=== PATIENT | male | born 1930 | race Caucasian/White ===

== ENCOUNTER 2018-02-15 17:54 | Inpatient (IN) | payer MEDICARE ==
[~2018-02-15] VITALS: Ht 188 cm; Wt 79.8 kg
[2018-02-15] MEDS ORDERED: PANT40TA4 PO (18:03)
[2018-02-15] MEDS ORDERED: HYDR-3326 PO (18:03)
[2018-02-15] MEDS ORDERED: CIPR-263 PO (18:03)
[2018-02-15] MEDS ORDERED: MULT1TAB73 PO (18:03)
[2018-02-15] MEDS ORDERED: TAMS0.4C34 PO (18:03)
[2018-02-15] MEDS ORDERED: ASPI81TA31 PO (18:03)
[2018-02-15 18:14] LABS: BASOPHILS % (AUTO) 0.3 % (0.0-2.0); EOSINOPHILS # (AUTO) 0.1 K/uL (0.0-0.7); EOSINOPHILS % (AUTO) 1.4 % (0.0-7.0); HEMATOCRIT 26.9 % (36.7-47.1); HEMOGLOBIN 8.9 g/dL (12.5-16.3); LYMPHOCYTES # (AUTO) 0.6 K/uL (20.0-40.0); LYMPHOCYTES % (AUTO) 9.1 % (20.5-51.5); MEAN CORPUSCULAR HEMOGLOBIN 31.9 uug (23.8-33.4); MEAN CORPUSCULAR HGB CONC 33 g/dL (32.5-36.3); MONOCYTES % (AUTO) 15.7 % (0.0-11.0); NEUTROPHILS # (AUTO) 4.9 K/uL (1.8-8.9); NEUTROPHILS % (AUTO) 73.5 % (38.5-71.5); PLATELET COUNT (AUTO) 240 K/uL (152-348); WHITE BLOOD COUNT (AUTO) 6.6 K/uL (3.6-10.2)
[2018-02-15 18:26] LABS: CARBON DIOXIDE 32 mmol/L (21-32); CHLORIDE 104 mmol/L (98-107); CREATININE 1.1 mg/dL (0.6-1.3); GLUCOSE 123 mg/dL (74-106); POTASSIUM 4.1 mmol/L (3.5-5.1); UREA NITROGEN, BLOOD 23 mg/dL (7-18)
[2018-02-15 18:31] LABS: ALANINE AMINOTRANSFERASE 18 U/L (16-63); ALKALINE PHOSPHATASE 59 U/L (50-136); ASPARTATE AMINOTRANSFERASE 12 U/L (15-37); BILIRUBIN,DIRECT 0.1 mg/dL (0.0-0.2); BILIRUBIN,TOTAL 0.2 mg/dL (0.2-1.0); TOTAL PROTEIN, SERUM 5.8 g/dL (6.4-8.2)
[2018-02-15 18:33] LABS: ACETAMINOPHEN < 2.0 ug/mL (10-30)
[2018-02-15 18:34] LABS: ETHANOL < 3 MG/DL (0-0)
[2018-02-15 18:47] LABS: EOSINOPHILS % (MANUAL) 2 % (0-8); LYMPHOCYTES % (MANUAL) 10 % (20-40); MONOCYTES % (MANUAL) 13 % (2-10); NEUTROPHILS % (MANUAL) 75 % (42-75)
[2018-02-15] MEDS ORDERED: HYDROCODONE/APAP 5-325MG TABLET PO ONE (19:15)
[2018-02-15] MEDS ORDERED: HYDROCODONE/APAP 5-325MG TABLET ONE (19:17)
[2018-02-15] MEDS ORDERED: MAGNESIUM HYDROXIDE 30 ML LIQUID UDC PO PRN (22:15)
[2018-02-15] MEDS ORDERED: MAG HYDROX/AL HYDROX/SIMETH 30 ML LIQUID UDC PO PRN (22:15)
[2018-02-15] MEDS: TEMAZEPAM 7.5 MG CAPSULE PO PRN (23:27)
[2018-02-16] MEDS: HYDROCODONE/APAP 5-325MG TABLET PO PRN (03:11)
[2018-02-16] MEDS: PANTOPRAZOLE SODIUM 40 MG TABLET.DR PO SCH (06:41)
[2018-02-16 07:30] VITALS: BP 125/72
[2018-02-16] MEDS: ASPIRIN 81 MG TAB.CHEW PO SCH (08:32)
[2018-02-16] MEDS ORDERED: MULTIVITAMINS,THERAPEUTIC TABLET PO SCH (09:00)
[2018-02-16] MEDS: CIPROFLOXACIN HCL 250 MG TABLET PO SCH ×2 (12:52→17:16)
[2018-02-16] MEDS: QUETIAPINE FUMARATE 25 MG TABLET PO SCH ×2 (13:03→20:47)
[2018-02-16 16:09] VITALS: BP 109/58
[2018-02-16] MEDS: TAMSULOSIN HCL 0.4 MG CAP.SR.24H PO SCH (20:47)
[2018-02-16 21:46] VITALS: BP 116/63
[2018-02-17] MEDS: HYDROCODONE/APAP 5-325MG TABLET PO PRN (01:33)
[2018-02-17] MEDS: PANTOPRAZOLE SODIUM 40 MG TABLET.DR PO SCH (06:35)
[2018-02-17 08:01] VITALS: BP 114/69
[2018-02-17] MEDS: MULTIVITAMINS,THERAPEUTIC TABLET PO SCH (08:27)
[2018-02-17] MEDS: ASPIRIN 81 MG TAB.CHEW PO SCH (08:27)
[2018-02-17] MEDS: QUETIAPINE FUMARATE 25 MG TABLET PO SCH ×2 (08:28→21:02)
[2018-02-17] MEDS: CIPROFLOXACIN HCL 250 MG TABLET PO SCH ×2 (08:29→16:44)
[2018-02-17 16:19] VITALS: BP 116/60
[2018-02-17 20:08] VITALS: BP 108/62
[2018-02-17] MEDS: TAMSULOSIN HCL 0.4 MG CAP.SR.24H PO SCH (21:02)
[2018-02-17 21:05] VITALS: BP 111/72
[2018-02-18] MEDS: PANTOPRAZOLE SODIUM 40 MG TABLET.DR PO SCH (06:44)
[2018-02-18 07:30] VITALS: BP 119/67
[2018-02-18 07:37] LABS: THYROID STIMULATING HORMONE 2.492 mIU/mL (0.358-3.740)
[2018-02-18] MEDS: CIPROFLOXACIN HCL 250 MG TABLET PO SCH ×2 (09:56→17:34)
[2018-02-18] MEDS: ASPIRIN 81 MG TAB.CHEW PO SCH (09:56)
[2018-02-18] MEDS: QUETIAPINE FUMARATE 25 MG TABLET PO SCH ×2 (09:58→20:33)
[2018-02-18] MEDS: MULTIVITAMINS,THERAPEUTIC TABLET PO SCH (15:07)
[2018-02-18 16:00] VITALS: BP 99/63
[2018-02-18 20:00] VITALS: BP 98/61
[2018-02-18] MEDS: TAMSULOSIN HCL 0.4 MG CAP.SR.24H PO SCH (20:32)
[2018-02-18] MEDS: ACETAMINOPHEN 325 MG TABLET PO PRN (20:33)
[2018-02-18 21:10] VITALS: BP 102/57
[2018-02-18] MEDS: Z GUARD REMEDY PASTE 57 GM TUBE TOP SCH (22:09)
[2018-02-19 00:04] LABS: *AMPHETAMINE, URINE NEGATIVE (NEGATIVE); *BARBITURATE, URINE NEGATIVE (NEGATIVE); *CANNABINOID, URINE NEGATIVE (NEGATIVE); *COCCAINE, URINE NEGATIVE (NEGATIVE); *OPIATE, URINE NEGATIVE (NEGATIVE); *PHENCYCLIDINE SCREEN,URINE NEGATIVE (NEGATIVE)
[2018-02-19 00:12] LABS: *BILIRUBIN,URIN NEGATIVE (NEGATIVE); *BLOOD, URINE Trace-intact (NEGATIVE); *CLARITY,URINE CLEAR (CLEAR); *COLOR,URINE YELLOW (YELLOW); *KETONES,URINE NEGATIVE (NEGATIVE); *PROTEIN,URINE NEGATIVE (NEGATIVE); *UROBILINOGEN,URINE 0.2 E.U./dl (NORMAL); LEUKOCYTE ESTERASE ,URINE 1+ (NEGATIVE); NITRITE, URINE NEGATIVE (NEGATIVE); UGLUCOSE NEGATIVE (NEGATIVE)
[2018-02-19 00:16] LABS: RBC,URINE 0-3 /HPF (0-3)
[2018-02-19 00:17] LABS: BACTERIA,URINE NONE SEEN /HPF (NONE SEEN); SQUAMOUS EPITHELIAL CELL,UR FEW /HPF (NONE SEEN)
[2018-02-19] MEDS: HYDROCODONE/APAP 5-325MG TABLET PO PRN (01:22)
[2018-02-19] MEDS: PANTOPRAZOLE SODIUM 40 MG TABLET.DR PO SCH (06:43)
[2018-02-19 07:30] VITALS: BP 105/53
[2018-02-19 07:31] LABS: BASOPHILS % (AUTO) 0.7 % (0.0-2.0); EOSINOPHILS # (AUTO) 0.1 K/uL (0.0-0.7); EOSINOPHILS % (AUTO) 2.6 % (0.0-7.0); HEMOGLOBIN 8.6 g/dL (12.5-16.3); LYMPHOCYTES # (AUTO) 0.7 K/uL (20.0-40.0); LYMPHOCYTES % (AUTO) 15.8 % (20.5-51.5); MEAN CORPUSCULAR HGB CONC 33 g/dL (32.5-36.3); MONOCYTES # (AUTO) 0.7 K/uL (2.0-10.0); MONOCYTES % (AUTO) 16.1 % (0.0-11.0); NEUTROPHILS % (AUTO) 64.8 % (38.5-71.5); PLATELET COUNT (AUTO) 242 K/uL (152-348); RED BLOOD CELL COUNT(AUTO) 2.77 MIL/uL (4.06-5.63); WHITE BLOOD COUNT (AUTO) 4.6 K/uL (3.6-10.2)
[2018-02-19 07:40] LABS: CARBON DIOXIDE 28 mmol/L (21-32); CHLORIDE 106 mmol/L (98-107); GLUCOSE 104 mg/dL (74-106); PHOSPHOROUS 3.4 mg/dL (2.5-4.9); POTASSIUM 4.4 mmol/L (3.5-5.1); UREA NITROGEN, BLOOD 26 mg/dL (7-18)
[2018-02-19] MEDS: QUETIAPINE FUMARATE 25 MG TABLET PO SCH ×2 (08:48→20:39)
[2018-02-19] MEDS: ASPIRIN 81 MG TAB.CHEW PO SCH (08:48)
[2018-02-19] MEDS: Z GUARD REMEDY PASTE 57 GM TUBE TOP SCH ×2 (08:49→20:40)
[2018-02-19 09:38] LABS: LYMPHOCYTES % (MANUAL) 16 % (20-40)
[2018-02-19 09:39] LABS: EOSINOPHILS % (MANUAL) 3 % (0-8); MONOCYTES % (MANUAL) 15 % (2-10); NEUTROPHILS % (MANUAL) 66 % (42-75)
[2018-02-19] MEDS: MULTIVITAMINS,THERAPEUTIC TABLET PO SCH (11:33)
[2018-02-19] MEDS ORDERED: INFLUENZA VACCINE 2018-2019 0.5 ML DISP.SYRIN IM ONE (14:00)
[2018-02-19] MEDS ORDERED: PNEUMOCOCCAL 23-VAL P-SAC VAC 0.5 ML VIAL IM ONE (14:00)
[2018-02-19 15:14] VITALS: BP 118/67
[2018-02-19] MEDS: ACETAMINOPHEN 325 MG TABLET PO PRN (17:54)
[2018-02-19 19:57] VITALS: BP 108/56
[2018-02-19] MEDS: TAMSULOSIN HCL 0.4 MG CAP.SR.24H PO SCH (20:39)
[2018-02-20] MEDS: TEMAZEPAM 7.5 MG CAPSULE PO PRN (00:16)
[2018-02-20] MEDS: HYDROCODONE/APAP 5-325MG TABLET PO PRN (00:17)
[2018-02-20] MEDS: PANTOPRAZOLE SODIUM 40 MG TABLET.DR PO SCH (06:30)
[2018-02-20 07:30] VITALS: BP 129/61
[2018-02-20] MEDS: QUETIAPINE FUMARATE 25 MG TABLET PO SCH ×2 (08:20→20:25)
[2018-02-20] MEDS: ASPIRIN 81 MG TAB.CHEW PO SCH (08:20)
[2018-02-20] MEDS: Z GUARD REMEDY PASTE 57 GM TUBE TOP SCH ×2 (08:24→20:25)
[2018-02-20] MEDS: MULTIVITAMINS,THERAPEUTIC TABLET PO SCH (11:31)
[2018-02-20 16:00] VITALS: BP 132/60
[2018-02-20 19:47] VITALS: BP 106/59
[2018-02-20] MEDS: TAMSULOSIN HCL 0.4 MG CAP.SR.24H PO SCH (20:24)
[2018-02-21] MEDS: PANTOPRAZOLE SODIUM 40 MG TABLET.DR PO SCH (06:40)
[2018-02-21 07:30] VITALS: BP 109/65
[2018-02-21] MEDS: ASPIRIN 81 MG TAB.CHEW PO SCH (08:34)
[2018-02-21] MEDS: QUETIAPINE FUMARATE 25 MG TABLET PO SCH ×2 (08:35→20:39)
[2018-02-21] MEDS: Z GUARD REMEDY PASTE 57 GM TUBE TOP SCH ×2 (08:39→21:10)
[2018-02-21] MEDS: MULTIVITAMINS,THERAPEUTIC TABLET PO SCH (10:30)
[2018-02-21 16:42] VITALS: BP 108/57
[2018-02-21 20:10] VITALS: BP 108/60
[2018-02-21] MEDS: TAMSULOSIN HCL 0.4 MG CAP.SR.24H PO SCH (20:39)
[2018-02-22] MEDS: PANTOPRAZOLE SODIUM 40 MG TABLET.DR PO SCH (06:33)
[2018-02-22 07:30] VITALS: BP 113/68
[2018-02-22] MEDS: QUETIAPINE FUMARATE 25 MG TABLET PO SCH ×2 (08:16→20:05)
[2018-02-22] MEDS: ASPIRIN 81 MG TAB.CHEW PO SCH (08:17)
[2018-02-22] MEDS: Z GUARD REMEDY PASTE 57 GM TUBE TOP SCH ×2 (08:17→20:06)
[2018-02-22] MEDS: MULTIVITAMINS,THERAPEUTIC TABLET PO SCH (11:33)
[2018-02-22 16:11] VITALS: BP 106/56
[2018-02-22 19:56] VITALS: BP 104/59
[2018-02-22] MEDS: TAMSULOSIN HCL 0.4 MG CAP.SR.24H PO SCH (20:04)
[2018-02-22] MEDS: DONEPEZIL 5 MG TABLET PO SCH (20:05)
[2018-02-23] MEDS: PANTOPRAZOLE SODIUM 40 MG TABLET.DR PO SCH (06:45)
[2018-02-23 07:30] VITALS: BP 97/59
[2018-02-23] MEDS: ASPIRIN 81 MG TAB.CHEW PO SCH (08:10)
[2018-02-23] MEDS: Z GUARD REMEDY PASTE 57 GM TUBE TOP SCH ×2 (08:10→20:27)
[2018-02-23] MEDS: QUETIAPINE FUMARATE 25 MG TABLET PO SCH ×3 (08:10→17:26)
[2018-02-23] MEDS: MULTIVITAMINS,THERAPEUTIC TABLET PO SCH (11:15)
[2018-02-23 16:00] VITALS: BP 90/52
[2018-02-23] MEDS: DONEPEZIL 5 MG TABLET PO SCH (20:25)
[2018-02-23] MEDS: TAMSULOSIN HCL 0.4 MG CAP.SR.24H PO SCH (20:25)
[2018-02-23 20:31] VITALS: BP 100/61
[2018-02-24] MEDS: PANTOPRAZOLE SODIUM 40 MG TABLET.DR PO SCH (06:42)
[2018-02-24 07:30] VITALS: BP 120/66
[2018-02-24] MEDS: ASPIRIN 81 MG TAB.CHEW PO SCH (08:31)
[2018-02-24] MEDS: QUETIAPINE FUMARATE 25 MG TABLET PO SCH ×3 (08:31→17:37)
[2018-02-24] MEDS: Z GUARD REMEDY PASTE 57 GM TUBE TOP SCH ×2 (08:32→20:34)
[2018-02-24] MEDS: MULTIVITAMINS,THERAPEUTIC TABLET PO SCH (11:38)
[2018-02-24] MEDS: CLONAZEPAM 0.5 MG TABLET PO PRN (12:45)
[2018-02-24 14:45] VITALS: BP 98/56
[2018-02-24 16:00] VITALS: BP 99/56
[2018-02-24 20:29] VITALS: BP 118/60
[2018-02-24] MEDS: TAMSULOSIN HCL 0.4 MG CAP.SR.24H PO SCH (20:34)
[2018-02-24] MEDS: DONEPEZIL 5 MG TABLET PO SCH (20:34)
[2018-02-25 07:30] VITALS: BP 107/59
[2018-02-25] MEDS: ASPIRIN 81 MG TAB.CHEW PO SCH (08:36)
[2018-02-25] MEDS: MULTIVITAMINS,THERAPEUTIC TABLET PO SCH (08:36)
[2018-02-25] MEDS: PANTOPRAZOLE SODIUM 40 MG TABLET.DR PO SCH (08:36)
[2018-02-25] MEDS: QUETIAPINE FUMARATE 25 MG TABLET PO SCH ×3 (08:36→16:32)
[2018-02-25] MEDS: Z GUARD REMEDY PASTE 57 GM TUBE TOP SCH ×2 (08:37→21:09)
[2018-02-25 16:16] VITALS: BP 96/56
[2018-02-25 20:17] VITALS: BP 114/60
[2018-02-25] MEDS: TAMSULOSIN HCL 0.4 MG CAP.SR.24H PO SCH (21:08)
[2018-02-25] MEDS: DONEPEZIL 5 MG TABLET PO SCH (21:08)
[2018-02-26] MEDS: PANTOPRAZOLE SODIUM 40 MG TABLET.DR PO SCH (06:35)
[2018-02-26 07:30] VITALS: BP 102/61
[2018-02-26] MEDS: QUETIAPINE FUMARATE 25 MG TABLET PO SCH ×3 (08:36→17:28)
[2018-02-26] MEDS: ASPIRIN 81 MG TAB.CHEW PO SCH (08:36)
[2018-02-26] MEDS: Z GUARD REMEDY PASTE 57 GM TUBE TOP SCH ×2 (08:36→20:07)
[2018-02-26] MEDS: MULTIVITAMINS,THERAPEUTIC TABLET PO SCH (08:36)
[2018-02-26 16:00] VITALS: BP 94/50
[2018-02-26 20:00] VITALS: BP 108/60
[2018-02-26] MEDS: TAMSULOSIN HCL 0.4 MG CAP.SR.24H PO SCH (20:06)
[2018-02-26] MEDS: DONEPEZIL 5 MG TABLET PO SCH (20:06)
[2018-02-27] MEDS: PANTOPRAZOLE SODIUM 40 MG TABLET.DR PO SCH (06:32)
[2018-02-27 07:30] VITALS: BP 98/53
[2018-02-27 07:40] LABS: BASOPHILS % (AUTO) 0.3 % (0.0-2.0); EOSINOPHILS # (AUTO) 0.1 K/uL (0.0-0.7); HEMATOCRIT 30.1 % (36.7-47.1); HEMOGLOBIN 10.1 g/dL (12.5-16.3); LYMPHOCYTES # (AUTO) 0.8 K/uL (20.0-40.0); LYMPHOCYTES % (AUTO) 11.6 % (20.5-51.5); MEAN CORPUSCULAR HEMOGLOBIN 31.3 uug (23.8-33.4); MEAN CORPUSCULAR HGB CONC 34 g/dL (32.5-36.3); MEAN CORPUSCULAR VOLUME 93.2 fL (73.0-96.2); MONOCYTES # (AUTO) 0.9 K/uL (2.0-10.0); MONOCYTES % (AUTO) 12.5 % (0.0-11.0); NEUTROPHILS # (AUTO) 5.3 K/uL (1.8-8.9); NEUTROPHILS % (AUTO) 73.6 % (38.5-71.5); RED BLOOD CELL COUNT(AUTO) 3.23 MIL/uL (4.06-5.63)
[2018-02-27 07:58] LABS: PLATELET COUNT (AUTO) 314 K/uL (152-348); WHITE BLOOD COUNT (AUTO) 7.1 K/uL (3.6-10.2)
[2018-02-27 08:03] LABS: CARBON DIOXIDE 26 mmol/L (21-32); CHLORIDE 108 mmol/L (98-107); CREATININE 1.1 mg/dL (0.6-1.3); GLUCOSE 106 mg/dL (74-106); MAGNESIUM 1.9 mg/dL (1.8-2.4); PHOSPHOROUS 2.8 mg/dL (2.5-4.9); POTASSIUM 4.2 mmol/L (3.5-5.1); UREA NITROGEN, BLOOD 35 mg/dL (7-18)
[2018-02-27] MEDS: QUETIAPINE FUMARATE 25 MG TABLET PO SCH ×3 (08:22→16:38)
[2018-02-27] MEDS: ASPIRIN 81 MG TAB.CHEW PO SCH (08:22)
[2018-02-27] MEDS: MULTIVITAMINS,THERAPEUTIC TABLET PO SCH (08:22)
[2018-02-27] MEDS: Z GUARD REMEDY PASTE 57 GM TUBE TOP SCH ×2 (08:22→20:25)
[2018-02-27 09:34] LABS: *BILIRUBIN,URIN NEGATIVE (NEGATIVE); *BLOOD, URINE 1+ (NEGATIVE); *CLARITY,URINE CLOUDY (CLEAR); *COLOR,URINE YELLOW (YELLOW); *KETONES,URINE NEGATIVE (NEGATIVE); *PROTEIN,URINE 1+ (NEGATIVE); *UROBILINOGEN,URINE 0.2 E.U./dl (NORMAL); LEUKOCYTE ESTERASE ,URINE 2+ (NEGATIVE); NITRITE, URINE POSITIVE (NEGATIVE); UGLUCOSE NEGATIVE (NEGATIVE)
[2018-02-27 09:54] LABS: BACTERIA,URINE MANY /HPF (NONE SEEN); SQUAMOUS EPITHELIAL CELL,UR FEW /HPF (NONE SEEN); WBC,URINE TNTC /HPF (0-3)
[2018-02-27 15:13] VITALS: BP 95/62
[2018-02-27] MEDS: TAMSULOSIN HCL 0.4 MG CAP.SR.24H PO SCH (20:25)
[2018-02-27] MEDS: DONEPEZIL 5 MG TABLET PO SCH (20:25)
[2018-02-27] MEDS: SULFAMETH/TRIMETH 800/160 MG TABLET PO SCH (20:25)
[2018-02-27 20:48] VITALS: BP 114/76
[2018-02-28] MEDS: TEMAZEPAM 7.5 MG CAPSULE PO PRN (00:10)
[2018-02-28] MEDS: CLONAZEPAM 0.5 MG TABLET PO PRN (01:35)
[2018-02-28] MEDS: PANTOPRAZOLE SODIUM 40 MG TABLET.DR PO SCH (06:34)
[2018-02-28 07:30] VITALS: BP 100/53
[2018-02-28] MEDS: ASPIRIN 81 MG TAB.CHEW PO SCH (08:25)
[2018-02-28] MEDS: QUETIAPINE FUMARATE 25 MG TABLET PO SCH ×2 (08:25→12:12)
[2018-02-28] MEDS: SULFAMETH/TRIMETH 800/160 MG TABLET PO SCH (08:25)
[2018-02-28] MEDS: MULTIVITAMINS,THERAPEUTIC TABLET PO SCH (08:25)
[2018-02-28] MEDS: Z GUARD REMEDY PASTE 57 GM TUBE TOP SCH (08:25)
== END 2018-02-28 12:45 | DRG 885 ==
LOC: ER 17:54 → GPS 20:53
PROVIDERS: ADMIT Psychiatry & Neurology Psychiatry; ATTEND Hospitalist
DX: F29 Unspecified psychosis not due to a substance or known physiological condition (principal); N18.9 Chronic kidney disease, unspecified; N39.0 Urinary tract infection, site not specified; J98.11 Atelectasis; J90 Pleural effusion, not elsewhere classified; Z88.0 Allergy status to penicillin; I48.2 Chronic atrial fibrillation; Z79.82 Long term (current) use of aspirin; Z59.0 Homelessness; F43.10 Post-traumatic stress disorder, unspecified; N40.0 Benign prostatic hyperplasia without lower urinary tract symptoms; R46.0 Very low level of personal hygiene; R93.5 Abnormal findings on diagnostic imaging of other abdominal regions, including retroperitoneum; Z87.891 Personal history of nicotine dependence; F03.90 Unspecified dementia, unspecified severity, without behavioral disturbance, psychotic disturbance, mood disturbance, and anxiety; G89.18 Other acute postprocedural pain; D64.9 Anemia, unspecified; Z91.81 History of falling
CPT/HCPCS: 36415; 70450; 71045; 72170; 76856; 80307; 83735; 83921; 84100; 84443; 85025; 87077; 87086; 90686; 90732; 93005; 97116; 97530; A4663; G0480; G0480-TC

== ENCOUNTER 2018-06-29 12:33 | Inpatient (IN) | payer MEDICARE ==
[~2018-06-29] VITALS: Ht 182.9 cm; Wt 76.7 kg
[~2018-06-29 12:33] MED LIST: ASPI81TA31 PO; CIPR-263 PO; HYDR-3326 PO; MULT1TAB73 PO; PANT40TA4 PO; TAMS0.4C34 PO
[2018-06-29 13:01] LABS: BASOPHILS % (AUTO) 0.5 % (0.0-2.0); EOSINOPHILS # (AUTO) 0.1 K/uL (0.0-0.7); EOSINOPHILS % (AUTO) 1.2 % (0.0-7.0); HEMATOCRIT 34.2 % (36.7-47.1); HEMOGLOBIN 11.1 g/dL (12.5-16.3); LYMPHOCYTES # (AUTO) 0.7 K/uL (20.0-40.0); MEAN CORPUSCULAR HEMOGLOBIN 27.5 uug (23.8-33.4); MEAN CORPUSCULAR HGB CONC 33 g/dL (32.5-36.3); MEAN CORPUSCULAR VOLUME 84.7 fL (73.0-96.2); MONOCYTES % (AUTO) 15.2 % (0.0-11.0); NEUTROPHILS # (AUTO) 4.8 K/uL (1.8-8.9); NEUTROPHILS % (AUTO) 72.1 % (38.5-71.5); PLATELET COUNT (AUTO) 237 K/uL (152-348); RED BLOOD CELL COUNT(AUTO) 4.04 MIL/uL (4.06-5.63); WHITE BLOOD COUNT (AUTO) 6.7 K/uL (3.6-10.2)
[2018-06-29 13:10] LABS: CARBON DIOXIDE 23 mmol/L (21-32); CHLORIDE 105 mmol/L (98-107); CREATININE 1.1 mg/dL (0.6-1.3); GLUCOSE 116 mg/dL (74-106); UREA NITROGEN, BLOOD 38 mg/dL (7-18)
[2018-06-29 13:18] LABS: ETHANOL < 3 MG/DL (0-0)
[2018-06-29] MEDS ORDERED: QUET50TA PO (13:20)
[2018-06-29] MEDS ORDERED: TAMS-3 PO (13:20)
[2018-06-29] MEDS ORDERED: ACET-2154 PO (13:20)
[2018-06-29] MEDS ORDERED: MAGN400O6 PO (13:20)
[2018-06-29] MEDS ORDERED: DONE5TAB7 PO (13:20)
[2018-06-29] MEDS ORDERED: NA P133E RC (13:20)
[2018-06-29] MEDS ORDERED: ASPI-605 PO (13:20)
[2018-06-29] MEDS ORDERED: PANT40TA2 PO (13:20)
[2018-06-29] MEDS ORDERED: BISA10SU61 RC (13:20)
[2018-06-29] MEDS ORDERED: MULT1TAB73 PO (13:20)
[2018-06-29 13:22] LABS: EOSINOPHILS % (MANUAL) 1 % (0-8); LYMPHOCYTES % (MANUAL) 11 % (20-40); MONOCYTES % (MANUAL) 15 % (2-10)
[2018-06-29 13:23] LABS: NEUTROPHILS % (MANUAL) 73 % (42-75); THYROID STIMULATING HORMONE 4.036 mIU/mL (0.358-3.740)
[2018-06-29 13:25] LABS: ACETAMINOPHEN < 2.0 ug/mL (10-30); ALANINE AMINOTRANSFERASE 20 U/L (16-63); ALKALINE PHOSPHATASE 86 U/L (50-136); ASPARTATE AMINOTRANSFERASE 12 U/L (15-37); BILIRUBIN,DIRECT 0.2 mg/dL (0.0-0.2); BILIRUBIN,TOTAL 0.2 mg/dL (0.2-1.0); TOTAL PROTEIN, SERUM 6.9 g/dL (6.4-8.2)
--- NOTE | 2018-06-29 13:35 | NUR ---
Patient is eating lunch tray with good appetite. Patient is medically cleared by Dr Diego.
--- NOTE | 2018-06-29 14:46 | NUR ---
Patient ambulated to bathroom with 1 person assist. "I usually use a walker." per patient's verbalization.
--- NOTE | 2018-06-29 14:55 | NUR ---
Willian Loaiza is at bedside evaluating the patient@this time.
[2018-06-29 15:05] LABS: *BILIRUBIN,URIN NEGATIVE (NEGATIVE); *BLOOD, URINE 2+ (NEGATIVE); *CLARITY,URINE CLOUDY (CLEAR); *COLOR,URINE YELLOW (YELLOW); *KETONES,URINE NEGATIVE (NEGATIVE); *UROBILINOGEN,URINE 0.2 E.U./dl (NORMAL); LEUKOCYTE ESTERASE ,URINE 1+ (NEGATIVE); NITRITE, URINE NEGATIVE (NEGATIVE); PH,URINE 6.5 (5.0-8.0); UGLUCOSE NEGATIVE (NEGATIVE)
[2018-06-29 15:09] LABS: *AMPHETAMINE, URINE NEGATIVE (NEGATIVE); *BARBITURATE, URINE NEGATIVE (NEGATIVE); *CANNABINOID, URINE NEGATIVE (NEGATIVE); *COCCAINE, URINE NEGATIVE (NEGATIVE); *OPIATE, URINE NEGATIVE (NEGATIVE); *PHENCYCLIDINE SCREEN,URINE NEGATIVE (NEGATIVE)
[2018-06-29 15:17] LABS: BACTERIA,URINE MANY /HPF (NONE SEEN); SQUAMOUS EPITHELIAL CELL,UR MODERATE /HPF (NONE SEEN); WBC,URINE 80-100 /HPF (0-3)
[2018-06-29 16:00] VITALS: BP 107/61
[2018-06-29] MEDS ORDERED: ZOLPIDEM 5 MG TABLET PO PRN (16:30)
[2018-06-29] MEDS ORDERED: MAG HYDROX/AL HYDROX/SIMETH 30 ML LIQUID UDC PO PRN (16:30)
[2018-06-29] MEDS ORDERED: MAGNESIUM HYDROXIDE 30 ML LIQUID UDC PO PRN ×2 (16:30→17:15)
[2018-06-29] MEDS ORDERED: FLEET ENEMA 133 ML BOTTLE RC PRN (17:15)
[2018-06-29] MEDS ORDERED: ACETAMINOPHEN 325 MG TABLET PO PRN (17:15)
[2018-06-29] MEDS ORDERED: BISACODYL 10 MG SUPP.RECT RC PRN (17:15)
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
[2018-06-29 20:07] VITALS: BP 113/56
[2018-06-29] MEDS: TAMSULOSIN HCL 0.4 MG CAP.SR.24H PO SCH (20:12)
--- NOTE | 2018-06-29 21:22 | NUR ---
Received pt in the dining room and watching tv. 1:1 sitter present at pt's side. No acute distress noted. No c/o pain or discomfort. Denies S/I, hallucination, delusion. Meds given as ordered. Pt appears pleasant and cooperative with care. Pt is now back to bed. Sitter at bedside for safety. Safety measures maintained. Will continue to monitor. Addendum: 06/29/18 at 2125 by Clotilde Aleman RN WRONG PATIENT. PLEASE DISREGARD.
--- NOTE | 2018-06-29 21:27 | NUR ---
Received pt sleeping comfortably in bed. Aroused to stimuli. AAO x2. No acute distress noted. No c/o pain or discomfort. Denies S/I, hallucination, delusion. Med given as ordered. Pt was given snack as per pt's request. Safety measures maintained. Will continue to monitor.
[2018-06-30] MEDS: PANTOPRAZOLE SODIUM 40 MG TABLET.DR PO SCH (06:10)
[2018-06-30 07:30] VITALS: BP 106/62
[2018-06-30] MEDS: ASPIRIN EC 81 MG TABLET.DR PO SCH (09:22)
[2018-06-30] MEDS: DIVALPROEX SPRINKLE 125 MG CAP.SPRINK PO SCH ×2 (10:07→20:18)
[2018-06-30] MEDS: LORAZEPAM 1 MG TABLET PO PRN (10:07)
[2018-06-30] MEDS: QUETIAPINE FUMARATE 25 MG TABLET PO SCH ×3 (10:08→16:31)
--- NOTE | 2018-06-30 11:10 | NUR ---
Initial Discharge Plan: Patient is a 87 year old male who currently lives at [facility] [[place] [address]; ]. Per patient, he would like to return there when ready. facility maintenance worker has reached out to facility admissions FRANKIE zuleta, and is awaiting response on if patient can return. facility maintenance worker has left voicemail with patient family member/cousin, Kris Cheng [ ], and currently awaiting call back. facility maintenance worker will continue to collaborate with patient, family, and MD on a safe and proper discharge.
--- NOTE | 2018-06-30 11:24 | NUR ---
Firearms report: studio set up worker completed and submitted at [employer] firearms report for a 5150 DTO certification.
[2018-06-30 15:05] VITALS: BP 97/55
[2018-06-30] MEDS: TAMSULOSIN HCL 0.4 MG CAP.SR.24H PO SCH (20:18)
[2018-06-30 20:27] VITALS: BP 104/53
--- NOTE | 2018-06-30 20:46 | NUR ---
GPS: Received pt lying in bed comfortably in his room. alert and oriented x2. No c/o pain or discomfort. Denies S/I, hallucination, delusion. compliant with po medications. encouraged po fluid intake. assisted with adl's. Safety measures maintained. Will continue to monitor.
[2018-06-30] MEDS ORDERED: LEVOFLOXACIN 500 MG TABLET ONE (22:52)
[2018-06-30] MEDS: LEVOFLOXACIN 500 MG TABLET PO SCH (22:55)
[2018-07-01] MEDS: PANTOPRAZOLE SODIUM 40 MG TABLET.DR PO SCH (06:17)
--- NOTE | 2018-07-01 07:00 | NUR ---
GPS: Remain uncooperative with nursing care. compliant with medications. encouraged po intake. on po atb for uti. showered this morning. slept 7 hrs through the night. continue plan of care.
[2018-07-01 07:30] VITALS: BP 96/61
[2018-07-01] MEDS: Z GUARD REMEDY PASTE 57 GM TUBE TOP SCH ×2 (08:59→20:32)
[2018-07-01] MEDS: DIVALPROEX SPRINKLE 125 MG CAP.SPRINK PO SCH ×2 (09:11→20:32)
[2018-07-01] MEDS: DONEPEZIL 10 MG TABLET PO SCH (09:11)
[2018-07-01] MEDS: ASPIRIN EC 81 MG TABLET.DR PO SCH (09:11)
[2018-07-01] MEDS: QUETIAPINE FUMARATE 25 MG TABLET PO SCH ×3 (09:12→16:57)
[2018-07-01] MEDS: ACETAMINOPHEN 325 MG TABLET PO PRN (16:18)
[2018-07-01] MEDS: LORAZEPAM 1 MG TABLET PO PRN (16:18)
[2018-07-01 16:46] VITALS: BP 136/72
[2018-07-01 20:00] VITALS: BP 104/62
[2018-07-01] MEDS: LEVOFLOXACIN 500 MG TABLET PO SCH (20:30)
[2018-07-01] MEDS: TAMSULOSIN HCL 0.4 MG CAP.SR.24H PO SCH (20:30)
[2018-07-02] MEDS: PANTOPRAZOLE SODIUM 40 MG TABLET.DR PO SCH (06:04)
--- NOTE | 2018-07-02 06:16 | NUR ---
GPS: Remain uncooperative with care. compliant with po medications. assisted with adl's. patient is incontinent. slept 6 hrs through the night. resting in bed comfortably.
[2018-07-02 07:30] VITALS: BP 125/72
[2018-07-02] MEDS: ASPIRIN EC 81 MG TABLET.DR PO SCH (09:03)
[2018-07-02] MEDS: QUETIAPINE FUMARATE 25 MG TABLET PO SCH ×3 (09:04→16:58)
[2018-07-02] MEDS: DONEPEZIL 10 MG TABLET PO SCH (09:04)
[2018-07-02] MEDS: Z GUARD REMEDY PASTE 57 GM TUBE TOP SCH ×2 (09:04→20:56)
[2018-07-02] MEDS: DIVALPROEX SPRINKLE 125 MG CAP.SPRINK PO SCH ×2 (09:04→20:58)
[2018-07-02] MEDS: ACETAMINOPHEN 325 MG TABLET PO PRN (11:02)
[2018-07-02] MEDS: GABAPENTIN 100 MG CAPSULE PO SCH ×2 (12:40→16:58)
[2018-07-02 16:40] VITALS: BP 102/60
[2018-07-02 20:02] VITALS: BP 109/61
[2018-07-02] MEDS: TAMSULOSIN HCL 0.4 MG CAP.SR.24H PO SCH (20:55)
[2018-07-02] MEDS: LEVOFLOXACIN 500 MG TABLET PO SCH (20:55)
[2018-07-03] MEDS: PANTOPRAZOLE SODIUM 40 MG TABLET.DR PO SCH (06:11)
--- NOTE | 2018-07-03 06:26 | NUR ---
PT SLEPT 10 HOURS. PT SHOWS NO ACUTE DISTRESS. PRESCRIBED MEDICATION GIVEN AND PT TOLERATED IT WELL.PT URINATED ON THE FLOOR GOING TO THE BATHROOM. PT NEEDS REORIENTATION. SAFETY AND COMFORT PROVIDED. ALL NEEDS ARE MET. WILL ENDORSE ACCORDINGLY TO INCOMING NURSE FOR CONTINUITY OF CARE.
[2018-07-03 07:30] VITALS: BP 104/68
[2018-07-03] MEDS: GABAPENTIN 100 MG CAPSULE PO SCH ×3 (08:33→17:26)
[2018-07-03] MEDS: ASPIRIN EC 81 MG TABLET.DR PO SCH (08:33)
[2018-07-03] MEDS: DIVALPROEX SPRINKLE 125 MG CAP.SPRINK PO SCH ×2 (08:33→20:43)
[2018-07-03] MEDS: DONEPEZIL 10 MG TABLET PO SCH (08:33)
[2018-07-03] MEDS: QUETIAPINE FUMARATE 25 MG TABLET PO SCH ×3 (08:33→17:26)
[2018-07-03] MEDS: Z GUARD REMEDY PASTE 57 GM TUBE TOP SCH ×2 (08:34→20:43)
[2018-07-03 15:34] VITALS: BP 92/59
--- NOTE | 2018-07-03 16:03 | NUR ---
Discharge planning: case worker received information from Kaitlyn, call center coordinator, at [facility] [[place] [address]; ] stating that patient would not be allowed to return as he did not sign a bed hold agreement. case worker told Kaitlyn that patient stated he wanted to return and that there is a signed Patient Return Agreement Letter (PRAL) signed by NAYELY Matthews. Kaitlyn remained insistent that credit control administrator would not accept patient back and requested faxed copy of signed PRAL. case worker faxed signed PRAL copy and is awaiting response from Kaitlyn.
[2018-07-03 19:52] VITALS: BP 106/60
[2018-07-03] MEDS: TAMSULOSIN HCL 0.4 MG CAP.SR.24H PO SCH (20:42)
[2018-07-03] MEDS: LEVOFLOXACIN 500 MG TABLET PO SCH (20:43)
[2018-07-04] MEDS: PANTOPRAZOLE SODIUM 40 MG TABLET.DR PO SCH (06:27)
[2018-07-04 07:30] VITALS: BP 107/65
[2018-07-04] MEDS: QUETIAPINE FUMARATE 25 MG TABLET PO SCH ×3 (08:39→16:38)
[2018-07-04] MEDS: DIVALPROEX SPRINKLE 125 MG CAP.SPRINK PO SCH ×2 (08:39→20:35)
[2018-07-04] MEDS: GABAPENTIN 100 MG CAPSULE PO SCH ×3 (08:39→16:38)
[2018-07-04] MEDS: ASPIRIN EC 81 MG TABLET.DR PO SCH (08:39)
[2018-07-04] MEDS: DONEPEZIL 10 MG TABLET PO SCH (08:40)
[2018-07-04] MEDS: Z GUARD REMEDY PASTE 57 GM TUBE TOP SCH ×2 (08:40→20:36)
[2018-07-04 15:50] VITALS: BP 96/57
[2018-07-04] MEDS: LEVOFLOXACIN 500 MG TABLET PO SCH (20:34)
[2018-07-04] MEDS: TAMSULOSIN HCL 0.4 MG CAP.SR.24H PO SCH (20:34)
[2018-07-05] MEDS: PANTOPRAZOLE SODIUM 40 MG TABLET.DR PO SCH (06:43)
[2018-07-05 07:30] VITALS: BP 96/52
[2018-07-05 08:21] VITALS: BP 96/52
[2018-07-05] MEDS: QUETIAPINE FUMARATE 25 MG TABLET PO SCH ×3 (09:27→18:16)
[2018-07-05] MEDS: DONEPEZIL 10 MG TABLET PO SCH (09:27)
[2018-07-05] MEDS: ASPIRIN EC 81 MG TABLET.DR PO SCH (09:27)
[2018-07-05] MEDS: Z GUARD REMEDY PASTE 57 GM TUBE TOP SCH ×2 (09:27→21:08)
[2018-07-05] MEDS: DIVALPROEX SPRINKLE 125 MG CAP.SPRINK PO SCH ×2 (09:27→21:08)
[2018-07-05] MEDS: GABAPENTIN 100 MG CAPSULE PO SCH ×3 (09:27→18:16)
--- NOTE | 2018-07-05 13:20 | NUR ---
Discharge planning: automotive production worker followed up with Kaitlyn, distribution coordinator, at [facility] [ ] regarding faxed PRAL [see DC planning note from 07/03/2018]. Per Kaitlyn, the PRAL was received and stated that applications administrator is still insisting that patient will not be accepted back to facility as the PRAL was signed before the patient stated "he did not want to return to facility". However, patient is stating he wants to return to facility. automotive production worker informed Kaitlyn that this is reportable to [facility] if patient is not accepted back. Kaitlyn stated he understood. 1:15pm: automotive production worker called [facility] to speak with NAYELY or applications administrator. automotive production worker spoke with Fabien front office supervisor, who took a message on behalf of NAYELY as she was at lunch and the applications administrator had stepped out. automotive production worker currently awaiting call back froM DON or applications administrator.
--- NOTE | 2018-07-05 13:50 | NUR ---
Discharge planning: broom worker returned phone call to patient cousin, Kris Cheng [[phone]], who is patient only family contact. broom worker inquired if Kris was able to assist patient in getting access to his money since last hospital admission in February 2018. Per Kris, he has been unable to assist patient in this process as patient has lost all of his documents including [employer] driver's license, social security card, and bank cards. Kris states the only way is to physically bring patient to bank, but patient has refused and Kris lives in [place]. However, Kris stated that patient case is in court and in the process of conservatorship with the Office of Public Guardian. Kris suggested to call Office of Public Guardian to check the status of the case as he has minimal contact with patient. broom worker called Office of Public Guardian [[phone]] and spoke with fisher pound net or trap, Jaylen, who states that patient has an assigned deputy claim investigator, Yang Roblero [[phone]]. Per Jaylen, he is unsure what step patient is at in the conservatorship process. broom worker called and left a voicemail with Yang and is currently awaiting call back.
--- NOTE | 2018-07-05 15:41 | NUR ---
Discharge planning: supervisor shed workers having received no return phone call from Alberto ADLER [ ], called for the second time at 2:40pm. supervisor shed workers left voicemail for NAYELY requesting a phone call back. supervisor shed workers currently awaiting return call.
--- NOTE | 2018-07-05 15:45 | NUR ---
Discharge planning: workers compensation adjuster called and left a message with front office attendant, Fabien, to have Alberto Patel [[phone]] city administrator, Mr. Díaz, call this specifications writer back regarding patient discharge plan. workers compensation adjuster currently awaiting call back.
--- NOTE | 2018-07-05 15:49 | NUR ---
Discharge planning: workers' compensation commissioner sent SNF inquiry to [facility] [ ; ] for admission review and is currently waiting response. workers' compensation commissioner also reached out to [facility] [phone]] and spoke with admissions counselor, Allan, who states they have no male bed availability at this time. Addendum: 07/07/18 at 1022 by ARRON DUKE Per Awa, admissions counselor, at [facility], patient is not accepted to facility due to "unmanageable behavior".
[2018-07-05 16:00] VITALS: BP 90/59
[2018-07-05 20:00] VITALS: BP 107/72
[2018-07-05] MEDS: TAMSULOSIN HCL 0.4 MG CAP.SR.24H PO SCH (21:08)
[2018-07-06] MEDS: PANTOPRAZOLE SODIUM 40 MG TABLET.DR PO SCH (06:43)
[2018-07-06 07:30] VITALS: BP 103/64
--- NOTE | 2018-07-06 09:58 | NUR ---
Discharge planning [late entry for 07/06/2018 @ 4:00pm]: human services worker received information from event coordinator, Kaitlyn, at [facility], that patient would not be accepted back to facility despite signed PRAL. human services worker has made multiple attempts with facility to facilitate patient returning to facility with no avail. For this reason, health care social worker filed an SOC 341 report against [facility] [[place] [address]; ] with local [facility] [phone: ; fax: ] for suspected abandonment of patient. human services worker gave verbal report to Estela Quigley, intake block and case maker, at [facility]. Per Estela Quigley, she suggested that a report also be filed with [facility] [phone: ; fax: ]. human services worker gave verbal report to Leonarda Olivas, intake block and case maker, at [facility]. Reports have been faxed to both agencies and successful fax returns have been received and placed in patient chart. Addendum: 07/07/18 at 1012 by ARRON DUKE above note entered on 07/07/2018 @ 10:10am
[2018-07-06] MEDS: ASPIRIN EC 81 MG TABLET.DR PO SCH (10:08)
[2018-07-06] MEDS: GABAPENTIN 100 MG CAPSULE PO SCH ×3 (10:08→16:57)
[2018-07-06] MEDS: DIVALPROEX SPRINKLE 125 MG CAP.SPRINK PO SCH ×2 (10:08→21:24)
[2018-07-06] MEDS: DONEPEZIL 10 MG TABLET PO SCH (10:09)
[2018-07-06] MEDS: Z GUARD REMEDY PASTE 57 GM TUBE TOP SCH ×2 (10:09→21:28)
[2018-07-06] MEDS: QUETIAPINE FUMARATE 25 MG TABLET PO SCH ×3 (10:09→16:57)
--- NOTE | 2018-07-06 11:33 | NUR ---
Discharge plannin:30am: property worker called and left second message with front end software engineerFabien, to have Alberto Patel [[phone]] senior storage administrator, Mr. Díaz, call this policy writer back regarding patient discharge plan. property worker informed Fabien that this matter is Urgent and needs response as soon as possible. property worker currently awaiting call back. Addendum: 07/06/18 at 1604 by ARRON DUKE 3:13pm: property worker after receiving no call back from senior storage administratorJens, called [facility] again and spoke with front end software engineerEkaterina, who states that senior storage administrator and DON are "busy" and unable to take call. property worker requested to leave a voicemail on their machine and Ekaterina stated "they don't check their machine". For this reason, manager social work left another message with front office specialist requesting the following message be relayed to senior storage administratorJens: Patient will be discharging soon back to [facility]. If Alberto Patel refuses to accept patient back, then a report will be made to [facility]. Ekaterina states that message will be relayed. property worker at 3:20pm received word from Kaitlyn, admission coordinator, that senior storage administrator, Jens, is continuing to refuse accepting patient back to facility. property worker informed Kaitlyn that this is reportable to [facility] Office. Kaitlyn acknowledged information and agreed to relay information to Kaitlyn. property worker will continue to follow-up.
--- NOTE | 2018-07-06 14:30 | NUR ---
Gps/Cam Milling Machine Operator- Noted patient argueing with his peer , challenging patient , discouraged from doing so, encouraged participation in his group therapy, encouraged verbalizations of his feelings, redirectable. Interacting with his selected peer .
[2018-07-06] MEDS: LORAZEPAM 1 MG TABLET PO PRN (15:21)
[2018-07-06 20:00] VITALS: BP 106/60
[2018-07-06] MEDS: ACETAMINOPHEN 325 MG TABLET PO PRN (21:25)
[2018-07-06] MEDS: TAMSULOSIN HCL 0.4 MG CAP.SR.24H PO SCH (21:25)
--- NOTE | 2018-07-06 22:00 | NUR ---
Patient in bed awake alert & oriented x2 reading magazines. No sign of distress noted. Compliant w/ meds & cooperative w/ staff. Vital signs are WNL. Repositioned for comfort.
[2018-07-07] MEDS: PANTOPRAZOLE SODIUM 40 MG TABLET.DR PO SCH (06:12)
--- NOTE | 2018-07-07 06:46 | NUR ---
Patient slept well throughout the night. Cooperative w/ staff. No acute distress.
[2018-07-07 07:30] VITALS: BP 94/56
--- NOTE | 2018-07-07 10:12 | NUR ---
Discharge plannin:00pm on 07/06/2018: hatchery worker called and spoke with Yang, computer technical support specialist/supervisor instrument repair, at [facility] [ ] informing him of records administrator, Jens, refusal to accept patient back to facility [see previous DC planning notes]. Per Yang, patient will be accepted back. 8:10am on 07/07/2018: hatchery worker spoke with Kaitlyn, digital traffic coordinator, at [facility] inquiring what time patient can be discharged to their care. Per Kaitlyn, patient is not yet accepted back as records administrator, Jens, is requesting that patient be evaluated by Kaitlyn prior to acceptance. Kaitlyn states that he will be coming to MHU at 10:30am to evaluate patient and provide decision on whether patient is accepted back to facility. hatchery worker has informed Dr. Guthrie and addiction social worker, Lisa Monaco. 9:51am on 07/07/2018: hatchery worker received phone call from rell Soria, at [facility] [[phone]] inquiring about [id number] report made yesterday [07/06/2018]. Estella informed social security benefits interviewer that she would need to speak with patient to see if patient would like [facility] help in this matter. hatchery worker transferred phone call to patient unit telephone. hatchery worker received second phone call from Estella stating that patient is interested in having help from [facility] and states she will fax a "release of information" for patient to sign. hatchery worker will await receipt of fax, have patient sign, and then return to Estella. hatchery worker will continue to follow-up on case.
[2018-07-07] MEDS: DIVALPROEX SPRINKLE 125 MG CAP.SPRINK PO SCH ×2 (10:15→20:46)
[2018-07-07] MEDS: GABAPENTIN 100 MG CAPSULE PO SCH ×3 (10:17→18:12)
[2018-07-07] MEDS: QUETIAPINE FUMARATE 25 MG TABLET PO SCH ×3 (10:17→18:12)
[2018-07-07] MEDS: ASPIRIN EC 81 MG TABLET.DR PO SCH (10:17)
[2018-07-07] MEDS: DONEPEZIL 10 MG TABLET PO SCH (10:17)
[2018-07-07] MEDS: Z GUARD REMEDY PASTE 57 GM TUBE TOP SCH ×2 (10:18→20:47)
--- NOTE | 2018-07-07 13:12 | NUR ---
Discharge planning: Patient was evaluated by Alberto Sahni resident care coordinator, who states that patient may come back to facility when ready for discharge. Patient agreeable to this plan.
--- NOTE | 2018-07-07 13:14 | NUR ---
TUESDAY DISCHARGE NOTE: Patient will be discharged back to [facility] [[place] [address]; ] on Tuesday, July 08, 2018. Transportation will be provided for patient at 10:30am. Please arrange ambulance transportation for this patient. Patient is AxOx3, presents with normal affect and euthymic mood, denies SI/HI, and is agreeable with discharge plan. Patient cousin, Kris Cheng [[phone]], has been notified of discharge and is agreeable with plan. Patient will be followed by Dr. Guthrie [psychiatrist] and Dr. Amaya [cattle sticker]. Patient has been provided with mental health resources including [facility] Crisis Line [ ], [facility] [ ], and National Suicide Prevention Lifeline [ ].
[2018-07-07 16:00] VITALS: BP 102/53
[2018-07-07 20:00] VITALS: BP 104/62
[2018-07-07] MEDS: TAMSULOSIN HCL 0.4 MG CAP.SR.24H PO SCH (20:46)
[2018-07-08] MEDS: PANTOPRAZOLE SODIUM 40 MG TABLET.DR PO SCH (06:07)
[2018-07-08] MEDS: ACETAMINOPHEN 325 MG TABLET PO PRN (06:07)
[2018-07-08 07:30] VITALS: BP 105/60
[2018-07-08] MEDS: GABAPENTIN 100 MG CAPSULE PO SCH ×2 (08:57→12:09)
[2018-07-08] MEDS: QUETIAPINE FUMARATE 25 MG TABLET PO SCH ×2 (08:57→12:09)
[2018-07-08] MEDS: ASPIRIN EC 81 MG TABLET.DR PO SCH (08:57)
[2018-07-08] MEDS: DONEPEZIL 10 MG TABLET PO SCH (08:57)
[2018-07-08] MEDS: Z GUARD REMEDY PASTE 57 GM TUBE TOP SCH (08:58)
[2018-07-08] MEDS: DIVALPROEX SPRINKLE 125 MG CAP.SPRINK PO SCH (09:01)
--- NOTE | 2018-07-08 11:00 | NUR ---
Gps/Electrical Prospecting Observer- Called [facility], called report to Power Byrd.Ambulance was called for clam picker, scheduled at 1130 am. All belongings given back to patient. Patient was well informed of the discharged plan.
== END 2018-07-08 13:00 | DRG 885 ==
LOC: ER 12:33 → GPS 15:29
PROVIDERS: ADMIT Psychiatry & Neurology Psychiatry; ATTEND Nurse Practitioner Acute Care
DX: F29 Unspecified psychosis not due to a substance or known physiological condition (principal); N18.9 Chronic kidney disease, unspecified; F02.81 Dementia in other diseases classified elsewhere, unspecified severity, with behavioral disturbance; J98.11 Atelectasis; N39.0 Urinary tract infection, site not specified; E44.0 Moderate protein-calorie malnutrition; G30.9 Alzheimer's disease, unspecified; Z79.82 Long term (current) use of aspirin; Z79.899 Other long term (current) drug therapy; Z68.22 Body mass index [BMI] 22.0-22.9, adult; I70.0 Atherosclerosis of aorta; N40.0 Benign prostatic hyperplasia without lower urinary tract symptoms; D63.8 Anemia in other chronic diseases classified elsewhere; I48.91 Unspecified atrial fibrillation; F43.10 Post-traumatic stress disorder, unspecified; I25.10 Atherosclerotic heart disease of native coronary artery without angina pectoris; M79.2 Neuralgia and neuritis, unspecified; I51.7 Cardiomegaly
CPT/HCPCS: 36415; 71045; 80164; 80307; 84443; 85025; 93005; 97110; 97116; 97530; A4663; G0480; G0480-TC